=== PATIENT | female | born 1955 | race African-American/Black ===

== ENCOUNTER 2021-01-06 04:06 | Emergency (ER) | payer MEDICAID, OTHER ==
[~2021-01-06] VITALS: Ht 167.6 cm; Wt 56.0 kg
[2021-01-06 04:40] VITALS: BP 118/82
[2021-01-06] MEDS ORDERED: DIPHENHYDRAMINE 25MG CAPSULE PO ONE (04:45)
[2021-01-06] MEDS ORDERED: HYDROCODONE/ACETAMINOPHEN 5/325MG TABLET PO ONE (04:45)
[2021-01-06] MEDS ORDERED: TRAM50TA MT (05:26)
[2021-01-06] MEDS ORDERED: ACYC200C MT (05:26)
[2021-01-06] MEDS ORDERED: IBUP-2028 MT (05:26)
== END 2021-01-06 06:12 | disposition home or self-care (01) ==
LOC: ER 04:06
DX: B02.9 Zoster without complications (principal); Z87.01 Personal history of pneumonia (recurrent); Z88.0 Allergy status to penicillin
CPT/HCPCS: 99283; Q0163

== ENCOUNTER 2021-08-08 15:10 | Emergency (ER) | payer MEDICAID, OTHER ==
[~2021-08-08] VITALS: Ht 160 cm; Wt 59.0 kg
[~2021-08-08 15:10] MED LIST: ACYC200C31 MT; IBUP-2028 MT; TRAM50TA MT
[2021-08-08] MEDS ORDERED: TRAMADOL 50MG TABLET PO ONE (15:45)
[2021-08-08] MEDS ORDERED: CEPH500T MT (15:50)
[2021-08-08] MEDS ORDERED: TRAM50TA3 MT (15:50)
[2021-08-08 15:57] VITALS: BP 115/84
== END 2021-08-08 15:58 | disposition home or self-care (01) ==
LOC: ER 15:10
DX: T24.202A Burn of second degree of unspecified site of left lower limb, except ankle and foot, initial encounter (principal); X16.XXXA Contact with hot heating appliances, radiators and pipes, initial encounter; Y93.89 Activity, other specified; Y92.89 Other specified places as the place of occurrence of the external cause; Z87.01 Personal history of pneumonia (recurrent); Z90.2 Acquired absence of lung [part of]
CPT/HCPCS: 99283